=== PATIENT | female | born 1945 | race Caucasian/White ===

== ENCOUNTER 2024-06-25 14:37 | Emergency (ER) | payer OTHER, SELFPAY ==
[2024-06-25 14:54] VITALS: BP 121/72; PULSE 61; RESP 18; TEMP 36.3; O2SAT 98
[2024-06-25 15:00] VITALS: BP 121/72; PULSE 61; RESP 18; TEMP 36.3; O2SAT 98
--- NOTE | 2024-06-25 15:17 | ED.URI ---
HPI - URI/Sore Throat General Chief Complaint: Upper Respiratory Infection Stated Complaint: Cold symptoms Time Seen by Provider: 06/25/24 15:03 Source: patient and RN notes reviewed Mode of arrival: ambulatory Limitations: no limitations History of Present Illness HPI Narrative: Patient presents today with a 5 day history of cough, congestion, sneezing, shortness of breath with exertion. Symptoms have been worse the past 3-4 days. She has tried NyQuil, which does provide some short-term relief. Patient works at [employer] with unknown sick contacts. She was recently diagnosed with asthma and uses a Breo inhaler daily. Related Data Home Medications Medication Instructions Recorded Confirmed albuterol sulfate 90 mcg/actuation inhalation 06/25/24 aerosol inhaler aspirin 81 mg tablet,delayed 81 mg PO DAILY 06/25/24 06/25/24 release (Adult Low Dose Aspirin) citalopram 10 mg tablet mg 06/25/24 fluticasone furoate 200 inhalation 06/25/24 mcg-vilanterol 25 mcg/dose inhalation powder (Breo Ellipta) fluticasone propionate 50 intranasal 06/25/24 mcg/actuation nasal spray,suspension lactobacillus combination no.8 3 cell 06/25/24 billion cell capsule lisinopril 20 tablet 06/25/24 mg-hydrochlorothiazide 12.5 mg tablet montelukast 10 mg tablet mg 06/25/24 omeprazole 20 mg capsule,delayed mg 06/25/24 release simvastatin 40 mg tablet mg 06/25/24 Allergies Allergy/AdvReac Type Severity Reaction Status Date / Time No Known Allergies Allergy Verified 06/25/24 14:56 Review of Systems Review of Systems: CONSTITUTIONAL: Denies body aches, fever, chills, or sweats. EYES: Denies visual changes, redness, or discharge. ENT: Denies rhinorrhea, sore throat, or otalgia.+ congestion, sneezing CARDIOVASCULAR: Denies chest pain, palpitations, or edema. RESPIRATORY: + cough, shortness of breath with exertion GASTROINTESTINAL: Denies abdominal pain, nausea, vomiting, or diarrhea. GENITOURINARY: Denies dysuria or hematuria. SKIN: Denies rash, itching, or wounds. MUSCULOSKELETAL: Denies back pain, joint pain, or myalgia. NEUROLOGIC: Denies headache, numbness, tingling, or weakness. PSYCH: Denies depression or anxiety. [facility] Past Medical History Medical History (Updated 06/25/24 @ 15:30 by Goldie Nolasco, [facility], ) Asthma High cholesterol Hypertension Comments At time of signature, I have reviewed and agree with nursing past medical, surgical, social and family history unless otherwise noted. Please see nursing chart for further information. There is no relevant family history pertinent to the presenting complaint Exam Narrative: GENERAL: Well-appearing, well-nourished, and in no acute distress. HEAD: Normocephalic, atraumatic. EYES: EOMI. No redness or drainage. Conjunctivae normal. ENT: Mucous membranes pink and moist. Nares clear. No rhinorrhea. TMs normal bilaterally. Throat normal. Uvula midline. Hard of hearing NECK: Normal AROM. Supple. No lymphadenopathy. CHEST: No respiratory distress. Clear to auscultation. HEART: Regular rate and rhythm. No murmur appreciated. EXTREMITIES: Normal range of motion. No edema. SKIN: Warm, dry, no rash. Capillary refill normal. Normal skin turgor. NEURO: No focal deficits. Alert and oriented x3. Gait steady. PSYCH: Normal affect. No signs of depression or anxiety. Course Course Level of Care: Express Care Visit Vital Signs Vital signs: Vital Signs Temperature 97.4 F L 06/25/24 14:54 Pulse Rate 61 06/25/24 14:54 Respiratory Rate 18 06/25/24 14:54 Blood Pressure 121/72 06/25/24 14:54 Pulse Oximetry 98 06/25/24 14:54 Oxygen Delivery Room Air 06/25/24 14:54 Temperature 97.4 F L 06/25/24 15:00 Pulse Rate 61 06/25/24 15:00 Respiratory Rate 18 06/25/24 15:00 Blood Pressure 121/72 06/25/24 15:00 Pulse Oximetry 98 06/25/24 15:00 Oxygen Delivery Room Air 06/25/24 15:00 Reviewed
[2024-06-25 15:27] LABS: EDINFLUASCREEN Negative; EDINFLUBSCREEN Negative
== END 2024-06-25 15:35 | disposition home or self-care (01) ==
PROVIDERS: Emergency Provider Nurse Practitioner; PCP Physician Assistant
DX: J06.9 Acute upper respiratory infection, unspecified (principal); J45.901 Unspecified asthma with (acute) exacerbation; Z20.822 Contact with and (suspected) exposure to COVID-19; J45.909 Unspecified asthma, uncomplicated; E78.00 Pure hypercholesterolemia, unspecified; I10 Essential (primary) hypertension; Z79.82 Long term (current) use of aspirin
CPT/HCPCS: 87426; 87804; 99203; G0463